=== PATIENT | male | born 1985 | race Caucasian/White ===

== ENCOUNTER 2021-04-17 11:10 | Emergency (ER) | payer OTHER ==
[~2021-04-17] VITALS: Ht 175.3 cm; Wt 74.4 kg
== END 2021-04-17 17:07 | disposition home or self-care (01) ==
LOC: ER 11:10
DX: K52.9 Noninfective gastroenteritis and colitis, unspecified (principal)

== ENCOUNTER 2021-12-07 08:57 | Emergency (ER) | payer OTHER ==
[~2021-12-07] VITALS: Ht 378.5 cm; Wt 78.5 kg
== END 2021-12-07 10:29 | disposition home or self-care (01) ==
LOC: ER 08:57
DX: L23.1 Allergic contact dermatitis due to adhesives (principal); T22.212S Burn of second degree of left forearm, sequela; T79.8XXS Other early complications of trauma, sequela; X15.0XXS Contact with hot stove (kitchen), sequela

== ENCOUNTER 2022-05-08 08:51 | Emergency (ER) | payer OTHER ==
[~2022-05-08] VITALS: Ht 175.3 cm; Wt 75.7 kg
[2022-05-08] MEDS ORDERED: DICLOFENAC POTA50 MG PO (11:29)
[2022-05-08] MEDS ORDERED: ORPHENADRINE C100 MG PO (11:29)
== END 2022-05-08 11:54 ==
LOC: ER 08:51
DX: S83.91XA Sprain of unspecified site of right knee, initial encounter (principal); X58.XXXA Exposure to other specified factors, initial encounter; Y93.9 Activity, unspecified; Y92.9 Unspecified place or not applicable; Y99.9 Unspecified external cause status

== ENCOUNTER 2022-05-08 12:08 | Outpatient (CLI) | payer OTHER ==
[~2022-05-08 12:08] MED LIST: DICLOFENAC POTA50 MG PO; ORPHENADRINE C100 MG PO
== END 2022-05-08 12:22 | disposition home or self-care (01) ==
LOC: MRI 12:08
PROVIDERS: ATTEND General Practice
DX: M25.561 Pain in right knee (principal); S83.91XA Sprain of unspecified site of right knee, initial encounter
CPT/HCPCS: 73718

== ENCOUNTER 2023-02-04 09:08 | Emergency (ER) | payer OTHER ==
[~2023-02-04] VITALS: Ht 175.3 cm; Wt 78.5 kg
== END 2023-02-04 11:15 | disposition home or self-care (01) ==
LOC: ER 09:08
DX: J32.1 Chronic frontal sinusitis (principal); J06.9 Acute upper respiratory infection, unspecified; R51.9 Headache, unspecified; R07.0 Pain in throat; R09.81 Nasal congestion; Z20.822 Contact with and (suspected) exposure to COVID-19